=== PATIENT | male | born 1980 | race Hispanic/Latino ===

== ENCOUNTER 2024-02-29 14:35 | Inpatient (IN) | payer SELFPAY ==
[~2024-02-29] VITALS: Ht 167.6 cm; Wt 81.3 kg
[2024-02-29 15:37] LABS: EOSINOPHILS 1.1 % (0-6); HEMATOCRIT 42.6 % (35.0-50.0); HEMOGLOBIN 15.5 g/dL (12.0-18.0); LYMPHOCYTES 7.8 % (24-44); MCH 32.8 (27-36); MCHC 36.4 g/dl (30-36); MCV 90.3 fl (81-99); MONOCYTES 5.9 % (0-12); NEUTROPHILS 84.2 % (39-80); PLATELET COUNT 302 K/uL (140-440); RBC 4.72 M/ul (4.3-5.7); RDW 13.2 (10.5-15.0)
[2024-02-29] MEDS ORDERED: ondansetron HCL 4 MG/2 ML VIAL IV ONE (16:00)
[2024-02-29] MEDS ORDERED: PANTOPRAZOLE SODIUM 40 MG/10 ML VIAL IV ONE (16:00)
[2024-02-29] MEDS ORDERED: SODIUM CHLORIDE 0.9% 1,000 ML IV PRN (16:00)
[2024-02-29] MEDS ORDERED: HYDROmorphone HCL 1 MG/ML SYR IV ONE (16:00)
[2024-02-29 16:14] LABS: ALBUMIN 3.7 g/dL (3.4-5.0); ALBUMIN/GLOBULIN RATIO 0.88 (1.1-2.4); ALKALINE PHOSPHATASE 169 U/L (46-116); ALT (SGPT) 71 U/L (14-59); ANION GAP 18.4 (7-21); AST (SGOT) 47 U/L (15-37); BILIRUBIN, TOTAL 0.6 ng/dL (0.2-1.0); CALCIUM 8.8 mg/dL (8.5-10.1); CARBON DIOXIDE 21 mmol/L (21-32); CHLORIDE 101 mmol/L (98-107); CREATININE, SERUM 0.93 mg/dL (0.70-1.30); GLOMERULAR FILTRATION RATE,EST 104 mL/min (>60); POTASSIUM 4.4 mmol/L (3.5-5.1); PROTEIN, TOTAL 7.9 g/dL (6.4-8.2); UREA NITROGEN 8 mg/dL (7-18)
[2024-02-29 16:36] LABS: BILIRUBIN, URINE NEGATIVE (negative); BLOOD/HGB, URINE NEGATIVE (Negative); KETONE, URINE NEGATIVE (Negative); LEUK ESTERASE, URINE NEGATIVE (negative); NITRITE, URINE NEGATIVE (negative); PH, URINE 7.5 (5-7)
[2024-02-29] MEDS ORDERED: MORPHINE SULFATE 4 MG/ML VIAL IV PRN ×2 (18:00→20:00)
[2024-02-29] MEDS ORDERED: LACTATED RINGER'S 1,000 ML IV SCH (18:00)
[2024-02-29 18:05] VITALS: BP 144/83
--- NOTE | 2024-02-29 18:43 | NUR ---
Pt report received from MARIA D Byrd in ED room 5 at about 1747 hours. Pt A&O x4, reports pain is 7 out of 10 in mid epigastric, no nausea. Pt transferred to M/S room 113 by this RN at 1750, following. Pt able to stand and ambulate from ER stretcher just outside room 113, into the room and climb into bed unassisted. Pt provided with warm blankets, no-slip socks donned prior to him walking. IV site without redness, no swelling, pt has no c/o pain, IV flushes well, patent, with good blood return, 5ml blood drawn and wasted and 3ml blood drawn and handed to medical lab technician for triglyceride lab ordered. IV flushed with 10ml NS, 4mg MSO4 administered slow IVP, IV flushed with additional 5ml and connected to LR at rate ordered per emar. Pt oriented to room and call light, side rails up, call light in reach. Declines offer to place any items in lock box in room. Pt at bedside. Pt is turkish speaking; however, he does speak and understand scottish and his is scottish speaking as well. 2 RN skin assessment performed with MARIA D Byrd in ED room 5.
[2024-02-29] MEDS ORDERED: IBLOOD GLUCOSE TEST STRIP 1 EA TEST XX PRN (19:45)
[2024-02-29] MEDS ORDERED: DEXTROSE 50% 50 ML SYR IV PRN ×2 (19:45)
[2024-02-29] MEDS ORDERED: Insulin Regular 100 Unit/100 Ml Bag IV SCH (19:45)
[2024-02-29] MEDS ORDERED: DEXTROSE 5% 1,000 ML IV PRN (19:45)
[2024-02-29] MEDS ORDERED: GLUCAGON,HUMAN RECOMBINANT 1 MG/ML VIAL SUB-Q PRN (19:45)
[2024-02-29] MEDS ORDERED: DEXTROSE 5% - NACL 0.45% 1,000 ML IV SCH (19:45)
[2024-02-29] MEDS ORDERED: IBLOOD GLUCOSE TEST STRIP 1 EA TEST VI SCH (20:00)
--- NOTE | 2024-02-29 20:05 | NUR ---
PT ARRIVED TO THE UNIT VIA STRETCHER. HANDOFF REPORT RECEIVED FROM MARIA D TALAVERA. PT MOTHER AT BEDSIDE. PT IS ALERT AND ORIENTED, ABLE TO FOLLOW COMMANDS AND ANSWER QUESTIONS APPROPRIATLY. PT STATES HIS PAIN IS A 10/10, IN HIS ABDOMINAL AREA. HE STATES THIS PAIN HAS BEEN GOING ON FOR A COUPLE MONTHS. PT IS ON ROOM AIR, VITAL SIGNS STABLE. PT ABDOMEN IS TENDER TO TOUCH. NEW ORDERS RECEIVED FROM DR. ROY AND AVELINO UPDATED ON PLAN OF CARE, ALL QUESTIONS ANSWERED. PT IV SITE IS WNL. NO NEEDS AT THIS TIME.
[2024-02-29 20:12] VITALS: BP 133/94
[2024-02-29] MEDS ORDERED: HYDROmorphone HCL 1 MG/ML SYR IV PRN (20:15)
[2024-02-29] MEDS ORDERED: DEXTROSE 5% - LACTATED RINGERS 1,000 ML IV SCH (20:30)
--- NOTE | 2024-02-29 20:40 | NUR ---
INSULIN DRIP STARTED AT FIXED RATE PER DR ENRIQUE VERBAL ORDER.
--- NOTE | 2024-02-29 20:50 | NUR ---
PRN PAIN MEDICATION GIVEN PER EMAR. PT STATES HIS PAIN COMES AND GOES BUT IS A 10/10. NO FURTHER NEEDS AT THIS TIME. CALL LIGHT WITHIN REACH.
[2024-02-29 21:00] VITALS: BP 134/82
[2024-02-29] MEDS ORDERED: MELATONIN 3 MG TAB PO PRN (21:00)
--- NOTE | 2024-02-29 21:43 | NUR ---
DR ENRIQUE CALLED AND UPDATED ON PT RECENT BS CHECK. NO NEW ORDERS AT THIS TIME.
[2024-02-29 22:00] VITALS: BP 126/80
--- NOTE | 2024-02-29 22:30 | NUR ---
REPORTED PATIENT'S GLUCOSE TO MD. ORDERS TO INCREASED IV FLUID. SEE EMAR.
--- NOTE | 2024-02-29 22:53 | NUR ---
NEW IV SITE PLACED IN THE LEFT FOREARM. PT TOLERATED WELL. LABS DRAWN OFF SITE AND SENT TO LAB. NO FURTHER NEEDS AT THIS TIME. CALL LIGHT WITHIN REACH.
[2024-02-29 22:57] LABS: ANION GAP 16.1 (7-21); BUN/CREATININE RATIO 7.4 (6.0-28.6); CALCIUM 8.2 mg/dL (8.5-10.1); CREATININE, SERUM 0.81 mg/dL (0.70-1.30); POTASSIUM 4.1 mmol/L (3.5-5.1)
[2024-02-29 23:00] VITALS: BP 129/85
--- NOTE | 2024-02-29 23:41 | NUR ---
DR ENRIQUE CALLED AND UPDATED ON RECENT BS CHECK. NEW ORDERS RECEIVED- SEE EMAR
[2024-03-01] VITALS (13 sets, daily range): BP systolic 112–135; BP diastolic 68–95
--- NOTE | 2024-03-01 00:30 | NUR ---
PT LAYING AWAKE IN BED WATCHING TV. PT VITAL SIGNS STABLE. NO NEW CHANGES. PT HAS NO NEEDS AT THIS TIME. CALL LIGHT WITHIN REACH.
[2024-03-01] MEDS ORDERED: IBLOOD GLUCOSE TEST STRIP 1 EA TEST VI SCH (01:30)
--- NOTE | 2024-03-01 01:45 | NUR ---
PT STATES HIS PAIN IS A 7/10. PT GIVEN PAIN MEDICATION PER EMAR. PT LABS DRAWN VIA PERIPHERAL SITE AND SENT TO LAB. PT HAS NO FURTHER NEEDS AT THIS TIME. CALL LIGHT WITHIN REACH.
[2024-03-01 02:06] LABS: ANION GAP 14.1 (7-21); BUN/CREATININE RATIO 6.75 (6.0-28.6); CALCIUM 8.3 mg/dL (8.5-10.1); CREATININE, SERUM 0.74 mg/dL (0.70-1.30); POTASSIUM 4.1 mmol/L (3.5-5.1)
--- NOTE | 2024-03-01 03:30 | NUR ---
PT AWAKENS UPON ENTERING THE ROOM. PT STATES HIS PAIN FEELS BETTER, AND THAT THE MEDICATION HELPED. PT VITAL SIGNS REMAIN STABLE. PT HAS NO NEEDS AT THIS TIME. CALL LIGHT WITHIN REACH.
--- NOTE | 2024-03-01 04:45 | NUR ---
ASSESSMENT COMPLETE. PT IS LAYING AWAKE IN BED. PT STATES HIS PAIN IS A 3/10 IN HIS ABDOMINAL AREA. BT ARE HYPOACTIVE. PT VITAL SIGNS REMAIN STABLE. PT REMAINS ON ROOM AIR, LUNG SOUNDS ARE CLEAR. PT HAS NO NEEDS AT THIS TIME. CALL LIGHT WITHIN REACH.
--- NOTE | 2024-03-01 05:51 | NUR ---
PT STATES HIS ABDOMINAL PAIN IS 5/10, AND IS REQUESTING PAIN MEDICATION. PRN PAIN MEDICATION GIVEN PER EMAR. BLOOD DRAWN FROM PERIPHERAL IV SITE AND SENT TO LAB. NO FURTHER NEEDS AT THIS TIME. CALL LIGHT WITHIN REACH.
[2024-03-01 06:00] LABS: ANION GAP 13.9 (7-21); BUN/CREATININE RATIO 6.75 (6.0-28.6); CALCIUM 8.2 mg/dL (8.5-10.1); CREATININE, SERUM 0.74 mg/dL (0.70-1.30); POTASSIUM 3.9 mmol/L (3.5-5.1)
--- NOTE | 2024-03-01 06:43 | NUR ---
DR ENRIQUE CALLED AND UPDATED ON PT. NO NEW ORDERS AT THIS TIME.
[2024-03-01] MEDS ORDERED: CALCIUM CARBONATE 500 MG CHEW PO ONE (06:45)
[2024-03-01] MEDS ORDERED: LACTATED RINGER'S 1,000 ML IV SCH ×2 (07:15→20:30)
--- NOTE | 2024-03-01 07:34 | NUR ---
REPORT RECEIVED FROM JAYE KILLIAN. PT RESTING IN BED, EYES CLOSED, RR 20, HR 90'S SINUS RHYTHM. PT HAS JUST BEEN TAKEN OFF INSULIN DRIP AND NOW HAS LR RUNNING AT 100ML/HR.
--- NOTE | 2024-03-01 08:00 | NUR ---
IN TO DO AM ASSESSMENT, PT REPORTS MINIMAL ABD PAIN, DENIES NEED FOR MEDS, HAS EATEN A JELLO, DENIES NAUSEA. IVF INFUSING. CALL LIGHT IN HAND.
[2024-03-01] MEDS ORDERED: MAGNESIUM SULFATE 2 GM/50 ML BAG IV ONE (09:00)
[2024-03-01] MEDS ORDERED: ENOXAPARIN SODIUM 40 MG/0.4 ML SYR SUB-Q SCH (09:00)
--- NOTE | 2024-03-01 09:10 | NUR ---
FAMILY IN TO SEE PT.
[2024-03-01] MEDS ORDERED: FENOFIBRATE,MICRONIZED 145 MG TAB PO SCH (10:45)
--- NOTE | 2024-03-01 10:48 | NUR ---
PT AWAKE IN BED, TALKING WITH FAMILY IN ROOM. NO COMPLAINTS AT THIS TIME.
--- NOTE | 2024-03-01 11:52 | NUR ---
REMAINS IN CHAIR, SLEEPING.
[2024-03-01] MEDS ORDERED: PHARMACY RENAL DOSE ADJUSTMENT 1 DOSE MISC PO SCH (12:00)
[2024-03-01 12:17] LABS: BASOPHILS 0.8 % (0-2); EOSINOPHILS 0.5 % (0-6); HEMATOCRIT 41.8 % (35.0-50.0); HEMOGLOBIN 14.4 g/dL (12.0-18.0); LYMPHOCYTES 6.5 % (24-44); MCH 31.4 (27-36); MCHC 34.6 g/dl (30-36); MCV 90.7 fl (81-99); MONOCYTES 5.1 % (0-12); NEUTROPHILS 87.1 % (39-80); PLATELET COUNT 259 K/uL (140-440); RBC 4.61 M/ul (4.3-5.7); RDW 13.7 (10.5-15.0)
--- NOTE | 2024-03-01 12:30 | NUR ---
IN TO TALK WITH PT AND HIS RE PLAN OF CARE
[2024-03-01 12:32] LABS: ALBUMIN 3.2 g/dL (3.4-5.0); ALBUMIN/GLOBULIN RATIO 0.8 (1.1-2.4); ANION GAP 12.3 (7-21); BILIRUBIN, TOTAL 0.9 ng/dL (0.2-1.0); BUN/CREATININE RATIO 5.79 (6.0-28.6); CALCIUM 8.2 mg/dL (8.5-10.1); CREATININE, SERUM 0.69 mg/dL (0.70-1.30); POTASSIUM 4.3 mmol/L (3.5-5.1); PROTEIN, TOTAL 7.2 g/dL (6.4-8.2)
--- NOTE | 2024-03-01 13:30 | NUR ---
DR. MAHAJAN HERE TO SEE PATIENT. ORDERS RECEIVED TO TRANSFER TO [facility]. AGUERO CATH OCCLUDED, HAS BEEN IRRIGATED SEVERAL TIMES.
--- NOTE | 2024-03-01 14:14 | NUR ---
PT CONT TO REST WITH EYES CLOSED, RESP EVEN AND UNLABORED. FAMILY STILL VISITING PT. RR 20, HR 80'S SINUS RHYTHM.
--- NOTE | 2024-03-01 15:40 | NUR ---
REPORT RECEIVED FROM MARIA D STEVENSON IN CCU.
--- NOTE | 2024-03-01 15:55 | NUR ---
PATIENT IS SITTING UPRIGHT IN THE CHAIR AT THIS TIME. FULL ASSESSMENT COMPLETE AND DOCUMENTED IN THE CHART. PATIENT IS ALERT AND ORIENTED TIMES FOUR. PATIENT IS ON ROOM AIR AND LUNG SOUNDS ARE CLEAR IN THE UPPER LOBES BILATERALLY AND DIMINISHED IN THE BASES BILATERALLY. CARDIAC WITH NORMAL S1 AND S2 ON AUSCULTATION. RADIAL PULSES ARE STRONG BILATERALLY. BOWEL TONES ARE ACTIVE IN ALL FOUR QUADRANTS. PATIENT IS ON A CLEAR LIQUID DIET AND THE PATIENTS LAST BOWEL MOVEMENT WAS 02/29/24. IV SITE IN THE RAC FLUSHED WITH 10 ML NORMAL SALINE AND IS SALINE LOCKED. IV DRESSING IS CLEAN, DRY, AND INTACT. IV SITE IN THE LEFT FOREARM FLUSHED WITH 10 ML NORMAL SALINE AND IS SALINE LOCKED. IV DRESSING IS CLEAN, DRY, AND INTACT. SKIN INTACT. PATIENT WITH PAIN RATED 1/10 IN THE ABDOMEN AND IS NOT REQUESTING PAIN MEDICATION AT THIS TIME. PATIENT STATED NO FURTHER NEEDS AT THIS TIME. CALL LIGHT AND PERSONAL BELONGINGS ARE WITHIN REACH.
--- NOTE | 2024-03-01 15:57 | NUR ---
REPORT GIVEN TO BRIAN RN AND PT ESCORTED DOWN TO MED SURG ROOM 113.
--- NOTE | 2024-03-01 15:59 | NUR ---
PATIENT IS ON THE MEDICAL SURGICAL FLOOR AT THIS TIME. PATIENT WALKED FROM CCU AND TOLERATED WELL.
--- NOTE | 2024-03-01 16:25 | NUR ---
NOTIFIED OF THE PATIENT TEMPERATURE OF 99.5 F. RN RECEIVED TELEPHONE ORDER FOR 650 MG PO TYLENOL Q6P. ORDER PUT IN BY RN. WITH NO FURTHER ORDERS AT THIS TIME. CALL ENDED.
[2024-03-01] MEDS ORDERED: ACETAMINOPHEN 325 MG TAB PO PRN (16:30)
--- NOTE | 2024-03-01 17:09 | NUR ---
PATIENT IS SITTING UPRIGHT IN THE CHAIR WITH THE BILATERAL LOWER EXTREMITIES ELEVATED. VITAL SIGNS TAKEN AND DOCUMENTED IN THE CHART. PRN TYLENOL ADMINISTERED PER THE EMAR FOR PAIN RATED 5/10 IN THE ABDOMEN. PATIENT GIVEN JELLO AND APPLE JUICE PER PATIENT REQUEST. PATIENT IS ON A CLEAR LIQUID DIET. PATIENT STATED NO FURTHER NEEDS AT THIS TIME. CALL LIGHT AND PERSONAL BELONGINGS ARE WITHIN REACH.
--- NOTE | 2024-03-01 18:09 | NUR ---
PATIENT IS LYING IN THE CHAIR WITH BILATERAL LOWER EXTREMITIES ELEVATED. PATIENT WITH EYES CLOSED AND RESPIRATIONS ARE EVEN AND UNLABORED. CALL LIGHT AND PERSONAL BELONGINGS ARE WITHIN REACH.
--- NOTE | 2024-03-01 19:31 | NUR ---
PATIENT RESTING QUIELTY IN RECLINER, EYES CLOSED, ALERT TO STAFF IN ROOM. PATIENT IS ALERT AND ORIENTED, HE REPORTS PAIN "COMES AND GOES." NO DISTRESS NOTED ON VISUAL ASSESSMENT.
[2024-03-01] MEDS ORDERED: HYDROmorphone HCL 1 MG/ML SYR IV PRN (20:15)
[2024-03-01] MEDS ORDERED: MORPHINE SULFATE 4 MG/ML VIAL IV PRN (20:30)
[2024-03-01] MEDS ORDERED: OXYCODONE HCL 5 MG TAB PO PRN (20:30)
[2024-03-01] MEDS ORDERED: DEXTROSE 5% - LACTATED RINGERS 1,000 ML IV SCH (20:30)
[2024-03-01] MEDS ORDERED: SENNOSIDES 1 TAB PO SCH (21:00)
--- NOTE | 2024-03-01 21:23 | NUR ---
ROUNDED ON PATIENT STARTED IVF PER ORDER, ADMINISTERED OXYCODONE PRN FOR PAIN 5/10 ABD PAIN. BOWEL MEDICATION ALSO STARTED.
--- NOTE | 2024-03-01 22:59 | NUR ---
PATIENT ALERT IN BED IS PLAYING ON CELL PHONE. HE REPORTS PAIN IS GOOD. HIS IS SLEEPING ON COUCH IN ROOM, BLANKETS AND PILLOWS PROVIDED TO HER. THEY BOTH VERBALIZED NO OTHER NEEDS AT THIS TIME.
[2024-03-02 05:11] VITALS: BP 122/79
--- NOTE | 2024-03-02 05:19 | NUR ---
PATIENT HAS SLEPT INTERMITTEN OVER SHIFT. HE HAS DENIED PAIN SINCE PAIN MEDICATION AT START OF SHIFT. HE IS DRINKING WATER, HAS BEEN INDEPENDENT IN ROOM. CONCERN AT THIS TIME FOR RARE TO ABSENT BOWEL TONE. PATIENT REPORTS FLATUS POSITIVE.
[2024-03-02 05:22] LABS: BASOPHILS 0.6 % (0-2); EOSINOPHILS 0.9 % (0-6); HEMATOCRIT 40.6 % (35.0-50.0); HEMOGLOBIN 14.1 g/dL (12.0-18.0); LYMPHOCYTES 8.9 % (24-44); MCH 31.5 (27-36); MCHC 34.7 g/dl (30-36); MCV 90.9 fl (81-99); MONOCYTES 6.1 % (0-12); NEUTROPHILS 83.5 % (39-80); PLATELET COUNT 237 K/uL (140-440); RBC 4.47 M/ul (4.3-5.7); RDW 13.7 (10.5-15.0)
[2024-03-02 05:40] LABS: ALBUMIN/GLOBULIN RATIO 0.77 (1.1-2.4); ANION GAP 9.8 (7-21); BILIRUBIN, TOTAL 1.1 ng/dL (0.2-1.0); BUN/CREATININE RATIO 9.09 (6.0-28.6); CALCIUM 8.5 mg/dL (8.5-10.1); CHOLESTEROL/HDL RATIO 5.3; CREATININE, SERUM 0.88 mg/dL (0.70-1.30); POTASSIUM 3.8 mmol/L (3.5-5.1); PROTEIN, TOTAL 6.9 g/dL (6.4-8.2)
--- NOTE | 2024-03-02 07:11 | NUR ---
Pt report received from MARIA D Neville. Pt is awake, resting in bed, A&O. Pt's at bedside. Pt requests more iced water which was provided. White board updated, side rails up, call light in reach.
[2024-03-02] MEDS ORDERED: POLYETHYLENE GLYCOL 3350 1 PACKET PO ONE (09:00)
[2024-03-02 09:21] VITALS: BP 129/75
[2024-03-02 09:30] VITALS: BP 129/75
--- NOTE | 2024-03-02 12:56 | NUR ---
Pt up in chair after shower. Lunch tray on bedside table, 100% eaten. Pt denies any increase in pain with eating lunch, tolerated well. Pt talking on his phone to his daughter in [place]. Pt denies any needs at this time. Shower floor dried by this RN, room tidied. Call light in reach.
[2024-03-02] MEDS ORDERED: FENOFIBRATE145 MG PO (13:09)
[2024-03-02] MEDS ORDERED: OXYCODONE HCL5 MG PO (13:09)
[2024-03-02 13:35] VITALS: BP 145/84
--- NOTE | 2024-03-02 13:47 | NUR ---
Pt is resting, supine, on the couch, playing on his cell phone. Katherin Duron advised this RN that the pt's oral temp was 99.6. Instructed pt on how to use the incentive spirometer, and pt demonstrated its use. at bedside.
== END 2024-03-02 14:35 | disposition home or self-care (01) | DRG 440 ==
LOC: ED 14:35 → MS 17:36 → CCU 20:05 → MS 03-01 15:57
PROVIDERS: Emergency Medicine; ADMIT Student in an Organized Health Care Education/Training Program; ATTEND Student in an Organized Health Care Education/Training Program
DX: K85.80 Other acute pancreatitis without necrosis or infection (principal); E78.1 Pure hyperglyceridemia; K29.80 Duodenitis without bleeding; N20.0 Calculus of kidney
CPT/HCPCS: 36415; 36592; 74177; 80048; 80053; 80061; 81003; 83036; 83690; 83735; 84478; 85025; 87338; A9270; J1170; J1815; J2270; J2405; J2470; J3475; J7030; J7121; Q9967